=== PATIENT | female | born 1945 | race Hispanic/Latino ===

== ENCOUNTER 2016-11-13 12:32 | Observation (INO) | payer MEDICARE ==
[2016-11-13] VITALS (8 sets, daily range): BP systolic 148–191; BP diastolic 77–90; PULSE 48–63; RESP 16–22; O2SAT 98–100
[~2016-11-13] VITALS: Ht 167.6 cm; Wt 85.3 kg
[2016-11-13] MEDS ORDERED: Nitroglycerin 2% 1 Gm Ointment TOPICAL SCH (13:05)
--- NOTE | 2016-11-13 13:15 | ED.REPORT ---
HPI-Chest Pain 40 and Over Date of Service Nov 13, 2016 ED Provider: Antonio Conn DO Pt is a 71 year old female with a hx of HTN, hyperlipidemia and rheumatoid arthritis presenting to the ED complaining of 2/10 SOB and chest pressure onset yesterday. She has had worsening SOB since the smoke started. Symptoms are exacerbated by exertion, but were initially brought on at rest. Denies cough, fever, nausea or vomiting. The pain radiates up her left neck and to her left shoulder, and feels like a squeezing in her left upper arm. Denies hx of heart attack. She has not had a stress test but did have an echo in 2014. Pt took baby Aspirin with some relief prior to arrival. Nursing Notes Stated Complaint: CHEST PAIN Chief Complaint: General Complaint Nursing Notes Reviewed: Yes Allergies: Coded Allergies: lisinopril (Verified Allergy, Intermediate, coughing, 11/13/16) Uncoded Allergies: SULFA (Allergy, Unknown, 11/13/16) Scheduled Aspirin (Aspirin) 81 Mg Tablet 81 MG PO DAILY Atenolol (Tenormin) 25 Mg Tablet 25 MG PO DAILY B Complex with Vitamin C (Vitamin B-Complex with Vit C) 1 Each Tablet 1 EACH PO DAILY Calcium Carbonate/Vitamin D3 (Calcium 500 + Vit D 200 Tablet) 1 Each Tablet 1 EACH PO BID Cholecalciferol (Vitamin D3) (Vitamin D3) 50,000 Unit Capsule 50,000 UNIT PO WEEKLY Losartan Potassium (Cozaar) 25 Mg Tablet 25 MG PO DAILY Tofacitinib Citrate (Xeljanz Xr) 11 Mg Tab.er.24h 11 MG PO QPM Scheduled PRN Fluticasone Propionate (Flonase Allergy Relief) 50 Mcg/Actuation [place].susp 2 SPRAYS NA DAILY PRN PRN allergies General Time Seen by MD: 12:51 Chief Complaint Chest pain, Shortness of breath Hx Obtained From: Patient Arrived By: Walk-in Sudden in Onset?: No Onset Occurred: Yesterday Symptom Duration: Since onset Quality: Heaviness Radiation: : Arm left: Neck: Shoulder left Severity: Current: Mild Severity: Maximum: Mild Recent Healthcare: No recent doctor visit, No recent hospitalization Similar Sx Previous: Yes Past Medical History Past Medical History HTN, hyperlipidemia and rheumatoid arthritis, macrositic anemia Past Surgical History Right shoulder rotator cuff surgery Smoking History Never Smoker Social History Alcohol Use: Denies alcohol use Drug Use: Denies drug use Ambulatory Status Independent Review of Systems Constitutional: Denies: Fever Respiratory: Reports: Dyspnea on exertion, Shortness of breath, Denies: Non-productive cough Cardiovascular: Reports: Chest pain GI: Denies: Nausea, Vomiting Musculoskeletal: Reports: Extremity pain, Joint pain (left shoulder), Neck pain Complete sys rev & neg: except as marked. Physical Exam Initial Vital Signs Vital Signs (First) Date Time Temp Pulse Resp B/P Pulse Ox O2 Delivery O2 Flow Rate FiO2 11/13/16 12:38 36.9 48 18 177/83 100 Room Air Initial VS: Reviewed Head / Eyes: Atraumatic, Normocephalic, PERRL ENT: Mucous membranes moist, Conjunctiva normal, No scleral icterus Extremities: Vascular intact, Neuro intact, No swelling, No tenderness Skin: Warm, Dry, No cyanosis Neurologic: Alert, Oriented, Nonfocal Psychiatric: Mood/affect normal, Behavior normal, Normal thought content General/Constitutional: Awake, Alert, No acute distress, Well appearing Respiratory / Chest: Atraumatic, Breath sounds NL, Breath sounds = bilat, No respiratory distress Cardiovascular: Regular rhythm, Heart sounds NL Heart Rate / Rhythm: Positive: Bradycardia Abdomen: Atraumatic, Soft, Non-tender Interpretation & Diagnostics Lab Results Interpretation Result Diagram: 11/13/16 1310 11/13/16 1310 Test 11/13/16 13:10 White Blood Count 4.0th/mm3 (3.8-10.1) Red Blood Count 3.41mil/mm3 (3.90-5.20) Hemoglobin 11.2g/dL (12.0-15.6) Hematocrit 33.6% (35.0-46.0) Mean Corpuscular Volume 98.5fL (81-100) Mean Corpuscular Hemoglobin 32.8pg (27.0-35.0) Mean Corpuscular Hemoglobin Concent 33.3% (32.0-37.0) Red Cell Distribution Width 14.4% (12.3-15.4) Platelet Count 206bil/L (150-400) Neutrophils (%) (Auto) 19.4% (40-74) Lymphocytes (%) (Auto) 59.8% (14-46) Monocytes (%) (Auto) 16.4% (4-12) Eosinophils (%) (Auto) 3.7% (0-5) Basophils (%) (Auto) 0.5% (0-3) D-Dimer 1.09mg/L FEU (<0.50) Sodium Level 132mEq/L (134-144) Potassium Level 5.0mEq/L (3.5-5.2) Chloride Level 98mEq/L (97-108) Carbon Dioxide Level 22mmol/L (18-29) Blood Urea Nitrogen 23mg/dL (8-27) Creatinine 1.26mg/dL (0.57-1.00) Estimat Glomerular Filtration Rate 60mL/min (>59) Glucose Level 95mg/dL (60-99) Calcium Level 9.1mg/dL (8.5-10.1) Magnesium Level 2.2mg/dL (1.6-2.6) Total Bilirubin 0.5mg/dL (0.0-1.2) Aspartate Amino Transf (AST/SGOT) 36U/L (0-50) Alanine Aminotransferase (ALT/SGPT) 21U/L (0-32) Alkaline Phosphatase 119U/L (25-165) Troponin T < 0.010ug/L (0.0-0.011) Total Protein 7.8g/dL (6.4-8.4) Albumin 4.2g/dL (3.4-5.0) ECG Interpretation ECG Interpretation: Sinus bradycardia with a rate of 50. No ischemic changes. Time: 12:53 Interpreted by: ED physician X-Ray Chest Interpretation Chest Xray Interpretation: IMPRESSION: No acute pulmonary process. Dictated by: Jolie Gongora M.D. on 11/13/2016 at 13:20 View: Portable, 1 view Interpretation / Wet Read by: Interpret - Radiologist Re-Eval/Medical Decision Med Decision/Clinical Course Heart score of at least 4. D-dimer elevated. Chest CT pending. Will plan to admit for chest pain. Time of Eval: 14:10 Patient Status: Condition improved Re-Evaluation/Progress Note: Discussed plan for admission. Pt understands and agrees. All pt questions addressed. Consultation : Referral / Consult Name: TALYA FIELDS DO Consulted With: Hospitalist Call Returned at: 14:36 Slag Worker: Will see patient, Agrees with plan, Accepts admit Counseled Regarding: Diagnosis, Lab results, Need for admission Discharge & Departure Primary Impression: Chest pain Chest pain type: unspecified Qualified Code: R07.9 - Chest pain, unspecified Disposition: ADMITTED TO HOSPITAL Discharge Condition All VS Reviewed: Yes Condition: Improved Referrals: Rene Christian MD (PCP) Sami Attestation Portions of this note were transcribed by Samantha Padilla. I, Dr. Conn personally performed the history, physical exam and medical decision-making; I reviewed and confirmed the accuracy of the information in the transcribed note. Signed by: Sami Collazo, 11/13/2016. copies to: Rene Christian MD, Timothy S DO Nov 13, 2016 13:15 SAMANTHA PADILLA Nov 13, 2016 13:20
--- NOTE | 2016-11-13 13:22 | DRSVH ---
PROCEDURE: X-RAY CHEST ONE VIEW, PORTABLE ([id number]) INDICATIONS: CHEST PAIN TECHNIQUE: One view of the chest was acquired. COMPARISON: [facility], , CHEST 2VW, 08/26/2013, 9:15. FINDINGS: Surgical changes and devices: None. Lungs and pleura: No pleural effusions or pneumothorax. Lungs are clear. Mediastinum: Mediastinal contours appear normal. Heart size is normal. Bones and chest wall: No suspicious bony lesions. Overlying soft tissues appear unremarkable. IMPRESSION: No acute pulmonary process. Dictated by: Jolie Gongora M.D. on 11/13/2016 at 13:20 Approved by: Jolie Gongora M.D. on 11/13/2016 at 13:21
[2016-11-13 13:33] LABS: BASOPHILS % (AUTO) 0.5 % (0-3); EOSINOPHILS % (AUTO) 3.7 % (0-5); MONOCYTES % (AUTO) 16.4 % (4-12); Mean Corpuscular Hemoglobin 32.8 pg (27.0-35.0); Mean Corpuscular Volume 98.5 fL (81-100); NEUTROPHILS % (AUTO) 19.4 % (40-74); Platelet Count 206 bil/L (150-400)
[2016-11-13 13:59] LABS: TROPONIN T < 0.010 ug/L (0.0-0.011)
[2016-11-13 14:07] LABS: Magnesium 2.2 mg/dL (1.6-2.6)
[2016-11-13] MEDS ORDERED: Polyethylene Glycol (PEG) 17 Gm Powder PO PRN (14:50)
[2016-11-13] MEDS ORDERED: Atropine 1 mg/10 mL (Code) Syringe IVPUSH PRN (14:50)
[2016-11-13] MEDS ORDERED: Senna-Docusate 8.6-50 mg Tablet PO PRN (14:50)
[2016-11-13] MEDS ORDERED: Ondansetron 2 mg/mL 2 mL Inj IVPUSH PRN (14:50)
[2016-11-13] MEDS ORDERED: Alum-Mag Hydrox-Simeth 30 mL Suspension PO PRN (14:50)
[2016-11-13] MEDS ORDERED: CALC-72 PO (14:54)
[2016-11-13] MEDS ORDERED: TOFA11TA PO (14:54)
[2016-11-13] MEDS ORDERED: VITA1TAB22 PO (14:54)
[2016-11-13] MEDS ORDERED: LOSA25TA2 PO (14:54)
[2016-11-13] MEDS ORDERED: FLUT9.9S (14:54)
[2016-11-13] MEDS ORDERED: ATEN-154 PO (14:54)
[2016-11-13] MEDS ORDERED: ASPI-973 PO (14:54)
[2016-11-13] MEDS ORDERED: CHOL500050 PO (14:54)
[2016-11-13] MEDS: 0.9% Sodium Chloride 1,000 ML IV SCH (15:55)
[2016-11-13] MEDS: Sodium Chloride LOK Flush 10 mL Syringe IVFLUSH SCH (15:55)
--- NOTE | 2016-11-13 15:58 | DRSVH ---
PROCEDURE: CT ANGIO CHEST PULMONARY EMBOLISM ([id number]) INDICATIONS: dyspnea, chest pressure, elevated ddimer TECHNIQUE: After the administration of intravenous contrast, 2 mm thick sections acquired from the pulmonary api [place] to the posterior costophrenic angles. 3-dimensional maximum intensity projection (MIP) coronal a nd sagittal reformats were then acquired through the thorax. For radiation dose reduction, the follo wing was used: automated exposure control, adjustment of mA and/or kV according to patient size. COMPARISON: [facility], CT, CT CHEST WO CON, 03/24/2015, 8:19. [facility], CT, CHEST W/O CONTRAST, 03/22/2014, 11:25. [facility], CT, CHEST WITH CONTRAST, 4, 9:39. FINDINGS: Image quality: Excellent. Pulmonary arteries: Pulmonary arteries are normal in size, and demonstrate no intraluminal filling d efects to suggest central pulmonary embolism. Lungs and pleura: 5 mm right upper lobe nodule series 5 image 16 is present. It is unchanged. Focal a freddy of right lateral parenchymal pleural thickening is noted, unchanged, compared to 2013. No pleural effusions or pneumothorax. Central and peripheral airways are patent. Mediastinum: Heart size is normal, without pericardial effusion. No mediastinal or hilar adenopathy . Thoracic aorta is normal in caliber and enhancement. Esophagus is normal in caliber, without hiat al hernia. Bones and chest wall: No suspicious bony lesions. Ribs and thoracic spine appear intact throughout. Thyroid gland is unremarkable. No axillary or supraclavicular adenopathy. Abdomen: Visualized upper abdominal solid organs appear normal in the early arterial phase of enhanc ement. IMPRESSION: 1. No pulmonary embolism. 2. No effusions or consolidations. Dictated by: Jolie Gongora M.D. on 11/13/2016 at 15:46 Approved by: Jolie Gongora M.D. on 11/13/2016 at 15:57
--- NOTE | 2016-11-13 17:16 | NUR ---
Admit to [facility] Patient report called by Prerna Fabian RN in ED. Patient arrived to room 3010 via wheelchair and was able to transfer independently to scale and bed. Patient alert and oriented X3. Patient denied any pain at time of arrival. NS at 80mL/hour was started. Patient has several bruises noted on bilateral lower extremities. Patient blood pressure was hypertensive and MD notified. Patient oriented to staff, room, call light system, television, and visiting hours. Bed locked and call light with in reach.
[2016-11-13] MEDS ORDERED: XELJANZ XR 11 MG PO SCH (17:20)
--- NOTE | 2016-11-13 18:42 | NUR ---
Home Medication Patient has order for Xeljanz XR. Pharmacy does not carry medication. Patient was asked to have someone bring in home medication. Home medication was brought in and is being sent down to pharmacy for labeling.
--- NOTE | 2016-11-13 20:18 | PCM.HPMED ---
Subjective Date of Service Nov 13, 2016 Primary Provider: Admitting Physician: Primary Care Physician: Rene Christian MD Attending Physician: Admit Status: From the Emergency Department, Admit to [place] Team Chief Complaint: CHEST PAIN History of Present Illness: Ms. Coleen Pedersen is a vary pleasant 71 year old lady with a past medical history of hypertension, hyperlipidemia, and rheumatoid arthritis who presents to the [facility] Emergency Department with new onset chest pressure. She reports chest pain/pressure in her left chest, 5/10 pressure, with nothing aggravating or alleviating symptoms, "they just come and go." She she denies that it feels like GERD. She reports associated sharp 5/10 left shoulder pain and left arm pain that resembles "a tourniquet" and shortness of breath. She is endorsing radiation of pain into her neck and left arm. She did have mild dyspnea as well. Her symptoms were relieved with nitroglycerin. She states that this is has been ongoing for at least a month now. It is particularly worse last night. She denies syncope, vision change, headache, diaphoresis, dizziness, limb weakness, cough, fever, chills, nausea, vomiting, abdominal pain , diarrhea, dysuria. She has not had a stress test but did have an echo in 2014. Pt took baby Aspirin with some relief prior to arrival. She received 2 nitro in the ED with relief of symptoms. Social: Lives at home with . Good social support. No ambulatory aids. Full Code. In the ED her vitals:T-36.9, HR -49, RR-18, BP-177/83, 100% RA. EKG reviewed - SR, Bradycardia 50 bpm, normal axis, no ST changes. CT angio PE was done and was negative for pulmonary embolism In the ED she received: 2 SL nitro, ASA en route, Atorvastatin, NS fluids. Review of Systems: A comprehensive review of systems was conducted with the patient and found to be negative except as above in the History of Present Illness. Allergies Coded Allergies: lisinopril (Verified Allergy, Intermediate, coughing, 11/13/16) Uncoded Allergies: SULFA (Allergy, Unknown, 11/13/16) Home Medications Aspirin (Aspirin) 81 Mg Tablet 81 MG PO DAILY Atenolol (Tenormin) 25 Mg Tablet 25 MG PO DAILY B Complex with Vitamin C (Vitamin B-Complex with Vit C) 1 Each Tablet 1 EACH PO DAILY Calcium Carbonate/Vitamin D3 (Calcium 500 + Vit D 200 Tablet) 1 Each Tablet 1 EACH PO BID Cholecalciferol (Vitamin D3) (Vitamin D3) 50,000 Unit Capsule 50,000 UNIT PO WEEKLY Losartan Potassium (Cozaar) 25 Mg Tablet 25 MG PO DAILY Tofacitinib Citrate (Xeljanz Xr) 11 Mg Tab.er.24h 11 MG PO QPM Scheduled PRN Fluticasone Propionate (Flonase Allergy Relief) 50 Mcg/Actuation [place].susp 2 SPRAYS NA DAILY PRN PRN allergies PMH HTN Hyperlipidemia and Rheumatoid arthritis Macrositic anemia Surgical History Right shoulder rotator cuff surgery Family History Mother - cancer Father - heart disease Social History Hx Alcohol Use: Yes (socially) Hx Substance Use: No Smoking Status: Never Smoker Living Arrangement: with Family Additional Information 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 External ears without defect. Pupils equal, round, and reactive to light and accommodation. Anicteric sclerae, moist conjunctivae, and no lid lag. Oropharynx free of erythema and cobble stoning with moist mucosa. Neck: Supple with full range of motion. No jugular venous distension. No bruits. No lymphadenopathy or thyromegaly. Cardiovascular: Regular rate and rhythm with no murmurs, rubs, or gallops appreciated Pulmonary: Clear to auscultation bilaterally with no crackles, wheezes, or rhonchi. Normal respiratory effort with no use of accessory muscles. Abdomen: Bowel tones present. Soft, nontender, nondistended. No hepatosplenomegaly or masses appreciated. Extremities: No clubbing, cyanosis, edema, or lymphadenopathy appreciated. Skin: Normal temperature, turgor, and texture; no rash, ulcers, or subcutaneous nodules appreciated. Neurological: Cranial nerves grossly intact. Normal muscle strength, tone, and bulk. Reflexes, coordination, and sensory function within normal limits. No known gait impairment. Psychiatric: Normal mood and affect. Alert and oriented to person, place, and time. Lab and Diagnostics Result Diagram: 11/13/16 1310 11/13/16 1310 X-Rays, CTs and MRIs CT ANGIO CHEST PULMONARY EMBOLISM IMPRESSION: 1. No pulmonary embolism. 2. No effusions or consolidations. Approved by: Jolie Gongora M.D. on 11/13/2016 at 15:57 X-RAY CHEST ONE VIEW, PORTABLE IMPRESSION: No acute pulmonary process. Approved by: Jolie Gongora M.D. on 11/13/2016 at 13:21 Assessment & Plan Ms. Coleen Pedersen is a vary pleasant 71 year old lady with a past medical history of hypertension, hyperlipidemia, and rheumatoid arthritis who presents to the [facility] Emergency Department with new onset chest pressure. She is admitted under observation status, currently awaiting Stress test and Cardiac Echo. Chest pain, present on admission. Resolved. - EKG reviewed - SR, mildly bradycardic 50 bpm, normal axis, no st changes. - Continue home ASA. - Troponins x2 negative. - Echo ordered. Prior study in 2014. - CT angio - as above. - Exercise Stress test ordered for tomorrow. No caffeine. - IV Morphine prn. SL nitro prn chest pain. - Telemetry monitoring Acute on Chronic Hypertension, present on admission. Active. - She states she has taken her home medications in the a.m. -- Extra dose of losartan 25 mg by mouth was given in the ER, nitroglycerin patch is applied prior to arrival to the floor -- Give her an additional 12.5 mg of losartan at the time of admission -- Continue home Antihypertensives -Atenolol 25 mg daily, increase Losartan 25 mg twice a day. -- She is bradycardic and has not tolerated lisinopril. Hold off on giving her IV metoprolol or Enalapril -- May have to use hydrochlorothiazide or amlodipine by mouth for better control of blood pressures Chronic Conditions: Rheumatoid Arthritis stable - Continue home Tofacitinib 11 Mg PM. Acetaminophen for mild pain when necessary. Bowel regimen Senna and MiraLAX scheduled and PRN. Zofran when necessary for nausea and vomiting. SubQ heparin for now. SCDs in place. High-risk medications: IV Morphine Patient Status: Patient is admitted under observation status with expected length of stay less than 2 midnights due to severity of presenting symptoms, risk of adverse event, and complexity of treatment plan. Pain Evaluation: Adequate Pain Control Resuscitation Status: CPR: Attempt Resuscitation Time spent 45 minutes Attending Statement The patient was seen and examined together with Dr. Patel on 11/13/16 and I agree with the history, exam and plan as outlined in the note above. . TALYA PATEL DO Nov 13, 2016 14:56 Anamika Venegas DO Nov 13, 2016 22:28
[2016-11-14 00:11] VITALS: BP 169/76; PULSE 51; RESP 18; O2SAT 97
[2016-11-14] MEDS: Sodium Chloride LOK Flush 10 mL Syringe IVFLUSH SCH ×3 (00:30→16:00)
[2016-11-14] MEDS: Heparin 5,000 Unit/mL Inj SUBQ SCH ×3 (01:00→16:14)
[2016-11-14 01:11] LABS: Creatine Kinase 90 U/L (21-215)
[2016-11-14] MEDS: 0.9% Sodium Chloride 1,000 ML IV SCH ×2 (03:55→15:48)
[2016-11-14 05:18] VITALS: BP 174/80; PULSE 53; RESP 18; O2SAT 98
--- NOTE | 2016-11-14 05:29 | NUR ---
Shift note uneventful night ,no pain,tele reports ric at 49 now, NPO since mn
[2016-11-14] MEDS ORDERED: Fluticasone 0.05% 15 Spray/2 Gm 16 Gm Nasal Spray NASAL PRN (08:30)
[2016-11-14 10:47] VITALS: PULSE 49
--- NOTE | 2016-11-14 10:49 | PCM.PNMED ---
Subjective Date of Service Nov 14, 2016 Subjective Pt denies CP this AM. Blood pressure elevated this AM, Atenolol held for stress test today. Exam Vital Signs Vital Sign - Last Date Time Temp Pulse Resp B/P Pulse Ox O2 Delivery O2 Flow Rate FiO2 11/14/16 05:18 36.5 53 18 174/80 98 Room Air Intake and Output 11/13/16 11/13/16 11/14/16 Cumulative From/Thru 15:00 23:00 07:00 11/13/16 12:38 - 11/14/16 06:32 Intake Total 100 ml 1589 ml 1689 ml Output Total 175 ml 2325 ml 2500 ml Balance -75 ml -736 ml -811 ml Intake Oral 100 ml 440 ml 540 ml IV Total 1149 ml 1149 ml Output Urine Total 175 ml 2325 ml 2500 ml # Bowel Movements 0 0 Exam General: Elderly lady lying in bed in no acute distress, well-developed, well- nourished, appropriately interactive HEENT: Normocephalic, atraumatic. External ears without defect. Pupils equal, round, and reactive to light and accommodation. Anicteric sclerae, moist conjunctivae, and no lid lag. Oropharynx free of erythema and cobble stoning with moist mucosa. Neck: Supple with full range of motion. No jugular venous distension. No bruits. No lymphadenopathy or thyromegaly. Cardiovascular: Regular rate and rhythm with no murmurs, rubs, or gallops appreciated Pulmonary: Clear to auscultation bilaterally with no crackles, wheezes, or rhonchi. Normal respiratory effort with no use of accessory muscles. Abdomen: Bowel tones present. Soft, nontender, nondistended. No hepatosplenomegaly or masses appreciated. Extremities: No clubbing, cyanosis, edema, or lymphadenopathy appreciated. Skin: Normal temperature, turgor, and texture; no rash, ulcers, or subcutaneous nodules appreciated. Neurological: Cranial nerves grossly intact. Normal muscle strength, tone, and bulk. Reflexes, coordination, and sensory function within normal limits. No known gait impairment. Psychiatric: Normal mood and affect. Alert and oriented to person, place, and time. IVs and Medications Medications Reviewed: Medications were reviewed in detail Lab and Diagnostics Result Diagram: 11/13/16 1310 11/14/16 0055 X-Rays, CTs and MRIs CT ANGIO CHEST PULMONARY EMBOLISM IMPRESSION: 1. No pulmonary embolism. 2. No effusions or consolidations. Approved by: Jolie Gongora M.D. on 11/13/2016 at 15:57 X-RAY CHEST ONE VIEW, PORTABLE IMPRESSION: No acute pulmonary process. Approved by: Jolie Gongora M.D. on 11/13/2016 at 13:21 Assessment & Plan Ms. Coleen Pedersen is a vary pleasant 71 year old lady with a past medical history of hypertension, hyperlipidemia, and rheumatoid arthritis who presents to the [facility] Emergency Department with new onset chest pressure. Chest pain, present on admission. Resolved. - EKG reviewed - SR, mildly bradycardic 50 bpm, normal axis, no st changes. - Continue home ASA. - Troponins x2 negative. - Echo ordered. Prior study in 2014. -11/14- CT angio - No PE. - IV Morphine prn. SL nitro prn chest pain. - Telemetry monitoring - Exercise Stress test Acute on Chronic Hypertension, present on admission. Active. - She states she has taken her home medications in the a.m. -- Extra dose of losartan 25 mg by mouth was given in the ER, nitroglycerin patch is applied prior to arrival to the floor -- Give her an additional 12.5 mg of losartan at the time of admission -- bradycardic and has not tolerated lisinopril in past. Hold off on giving her IV metoprolol or Enalapril - Continued home Antihypertensives -Atenolol 25 mg daily, increase Losartan 25 mg twice a day. Held AM BB for stress. -- Other options hydrochlorothiazide or amlodipine by mouth for better control of blood pressures Chronic Conditions: Rheumatoid Arthritis stable - Continue home Tofacitinib 11 Mg PM. Acetaminophen for mild pain when necessary. Bowel regimen Senna and MiraLAX scheduled and PRN. Zofran when necessary for nausea and vomiting. SubQ heparin for now. SCDs in place. High-risk medications: IV Morphine Patient Status: Patient is admitted under observation status with expected length of stay less than 2 midnights due to severity of presenting symptoms, risk of adverse event, and complexity of treatment plan. Pain Evaluation: Adequate Pain Control VTE Prophylaxis: Sub-Q Heparin (Unfractionated) VTE Mechanical Devices: Venous Foot Pump Resuscitation Status: CPR: Attempt Resuscitation Gerhard Kim MD Nov 14, 2016 10:49
--- NOTE | 2016-11-14 11:31 | NUR ---
Social Work-initial assessment/ readiness for discharge: Data:See initial assessment. Pt is a 71 y/o female who was admitted on 11/13/16 for chest pain per H&P. Pt's insurance is [employer] and PCP is Rene Christian MD. EMR reviewed. SW met with pt and at bedside, SW role explained. Pt is alert and oriented x3. Pt resides at home with her in [facility] with one step to enter the house. Pt does not use any DME and drives. Pt has no HH or SNF history. Pt has no rodent exterminator care insurance or VA benefits. SW discussed DPOA/ advanced directive, pt has not completed this, SW provided pt with paperwork. Pt discussed in morning rounds, MD and RN do not report any concerns around pt's capacity for self care. Pt has been up independent in her room. Pt to have stress test today. SW provided pt and with discharge planning checklist and encouraged them to call with any questions, phone number provided. Pt's to provide transport home. No anticipated discharge needs. SW will continue to follow if needs arise. Assessment:pt who is independent at baseline. Plan:Pt to discharge home when medically stable via POV.No anticipated discharge needs. SW will continue to follow if needs arise. TRISTON Colby Addendum: 11/14/16 at 1143 by ARIANA CONNER Amended: Links added.
--- NOTE | 2016-11-14 11:45 | DRSVH ---
PROCEDURE: 1 DAY TREADMILL STRESS TEST Rest and exercise myocardial perfusion SPECT with gated imaging and ejection fraction RADIOPHARMACEUTICAL: 8.6 mCi Tc-99m tetrafosmin IV at rest and 25.4 mCi Tc-99m tetrafosmin IV at peak exercise. [id number] was performed. INDICATIONS: 71 year-old woman with chest pain. The patient has hypertension and history of smoking as risk factors for coronary artery disease. TECHNIQUE: Radiopharmaceutical was injected at peak stress test, and also at rest. SPECT images wer e obtained. SPECT myocardial perfusion images were displayed in short axis, horizontal long axis, an d vertical long axis views. Gated images were reviewed using LatindaQUANT software. COMPARISON: None. CARDIAC STRESS: A standard Oscar treadmill exercise tolerance test was performed by the patient under the supervision of an attending staff. The patient exercised for 2 minutes and 13 seconds; functional aerobic impai rment (CECI) is +25 %. Hemodynamic data: There is normal blood pressure and heart rate response to exercise stress. Patien t achieved 92% of maximum predicted heart rate at peak exercise. Symptoms: Patient denied chest pain during exercise. EKG: No diagnostic EKG changes of ischemia; no ectopy. FINDINGS: Raw data: There is good myocardial labeling by radiotracer. No significant motion artifacts. Left ventricle function: Gated images demonstrate normal left ventricle wall thickening. No segment al wall motion abnormality. No transient ischemic dilation. The left ventricle resting end-diastoli c volume is normal. Left ventricle stress ejection fraction is greater than 70%; normal values are a tracey 45%. Myocardial perfusion: There is normal distribution of activity in the left and right ventricular iftikhar cardium. No fixed or reversible perfusion defects. IMPRESSION: 1. Normal myocardial perfusion images. 2. Normal left ventricular volume and systolic function. 3. Mild to moderately reduced exercise capacity. No chest pain or diagnostic EKG changes for ischemia . PQRS ATTESTATIONS: Measure 322 - Is this imaging test primarily performed on a low-risk surgery patient for preoperative evaluation within 30 days preceding their low-risk non-cardiac surgery? Low-risk surgery is defined as cardiac or myocardial infarction less than 1%, including (but not limited to) endoscopic pr ocedures, superficial procedures, cataract surgery, and excisional breast surgery: Answer: No Measure 323 - Is this imaging test performed primarily for the monitoring of an asymptomatic patient who had percutaneous coronary intervention on the visit date or within 2 years of the visit date? An swer: No Measure 324 - Is this imaging test performed primarily for the initial detection and risk assessment on an asymptomatic, low coronary heart disease patient? Low CHD risk definition = clinicians should consider the maximum number of available patient factors used to estimate risk based on Leona (A TP III criteria), typically age, gender, diabetes, smoking status, and use of blood pressure medicati on, and integrate age appropriate estimates for missing elements, such as LDL or standard blood press ure. Answer: No Dictated by: Maura Smiley M.D. on 11/14/2016 at 11:39 Approved by: Maura Smiley M.D. on 11/14/2016 at 11:44
--- NOTE | 2016-11-14 12:50 | NUR ---
Case Management: SUNG delivered and charted. Signed original placed in chart. Copy left at bedside. Ashtyn Membreno RN
[2016-11-14 13:06] VITALS: BP 152/77; PULSE 63; RESP 18; O2SAT 99
--- NOTE | 2016-11-14 14:05 | PCM.DIMED ---
Discharge Instructions Date of Service Nov 14, 2016 Dates of Hospitalization Nov 13, 2016 at 15:00 Discharge Diagnosis Discharge Diagnosis Chest pain, present on admission. Resolved. Acute on Chronic Hypertension, present on admission. Resolved. Rheumatoid Arthritis, chronic, stable Medication Instructions Additional med instructions Continue Aspirin 81mg daily. Test Results Test Results 11/14- Treadmill Stress Test- 1. Normal myocardial perfusion images. 2. Normal left ventricular volume and systolic function. 3. Mild to moderately reduced exercise capacity. No chest pain or diagnostic EKG changes for ischemia Diet Discharge Diet: Low fat, Low Sodium Activity Discharge Activity: No restrictions Call your provider Call your provider for: Chest pain Patient Instructions Patient Instructions Cardiac stress test is negative for cardiac cause of chest pain. Your labs are consistent with Pre-Diabetes and your lipid/cholesterol labs are also elevated. Recommend diet and exercise control and rechecking labs in 3 months. Follow-up plan Follow up with you primary doctor in 2 weeks. Follow-up Provider: Rene Christian MD Follow-up with PCP in: 2 weeks Gerhard Kim MD Nov 14, 2016 14:05
[2016-11-14 16:51] VITALS: BP 135/82; PULSE 60; RESP 18; O2SAT 97
--- NOTE | 2016-11-14 17:53 | NUR ---
Discharge Patient given discharge orders. Patient given medication list with written times when next dose due. Patient given and explained follow up instructions. Patient IV removed fully intact and asymptomatic. Patient assisted to main entrance by wheelchair and staff.
--- NOTE | 2016-11-15 15:08 | DRSVH ---
[facility] [address] [place] [address] Echocardiogram Report Name: ORIANA BURT MStudy Date: 11/14/2016 Height: 66 in Hospital Exam Location: [facility] Weight: 189 lb Gender: Female BSA: 2.0 m2 : 1945 Age: 71 yrs BP: 174/80 mmHg Reason For Study: CHEST PAIN Ordering Physician: Reuben ShawPerformed By: Cinthia Dan Referring Physician: TALYA FIELDS Interpretation Summary 1. Normal left ventricular size, wall thickness and systolic function with an estimated EF of 60-65% 2. Upper limits of normal right ventricular size with normal systolic function. The estimated RVSP is 30 mm Hg 3. No evidence for significant valvular pathology Compared to the previous study, no appreciable change Procedure: A two-dimensional transthoracic echocardiogram with color flow and Doppler was performed. The study quality was technically adequate. A contrast injection of Definity was performed to improve assessment of LV function. Comparison is made with the echocardiogram of 06/03/14. The patient was in sinus bradycardia with heart rates between 56 and 63 bpm during the exam. Left Ventricle: The left ventricle is normal in size. There is normal left ventricular wall thickness. Mildly elevated outflow tract velocities. The left ventricular ejection fraction is normal. The ejection fraction is estimated to be 60-65%. No obvious focal wall motion abnormalities. Assessment of diastolic parameters indicates normal left ventricular diastolic function and normal filling pressures. Right Ventricle: The right ventricle is borderline dilated. The right ventricular systolic function is normal. Atria: The left atrium is moderately dilated. Right atrial size is normal. No color doppler evidence for an ASD. Mitral Valve: The mitral valve is normal. There is mild mitral annular calcification. There is trace mitral regurgitation. Aortic Valve: The aortic valve is trileaflet. The aortic valve is slightly calcified. The aortic valve opens well. No aortic regurgitation is present. Tricuspid Valve: The tricuspid valve is normal. There is mild tricuspid regurgitation. The right ventricular systolic pressure is estimated at least 30 mmHg assuming a right atrial pressure of 8 mm Hg. Pulmonic Valve: The pulmonic valve leaflets are thin and pliable; valve motion is normal. There is mild pulmonic regurgitation. Great Vessels: The aortic root is normal size. The ascending aorta is mildly enlarged. The aortic arch is normal in size. The diameter of the ascending aorta is 3.8 cm. The IVC is of normal diameter and collapses greater than 50% with a sniff. This suggests a low right atrial pressure of 3 mm Hg. Pericardium/ Pleura There is no pericardial effusion. There is no pleural effusion. MMode/2D Measurements & Calculations LVIDd: 5.1 cm RA long axis LVOT diam: 2.2 cm LVIDs: 2.8 cm LA A2 area: 26.9 cm AoV Opening FS: 44.6 % LA A4 area: 23.2 cm RA area EPSS: 0.96 cm LA length (vol) Ao root diam IVSd: 1.0 cm : 16.3 cm LVPWd: 0.82 cm LA vol: 90.4 ml RA vol asc Aorta Diam LA vol index : 43.3 ml RA Ao Arch Diam (Prox : 22.2 mm2 Trans): 2.9 cm IVC diam: 2.3 cm LV julio. diameter/BSA LV sys. diameter/BSA RVD1 (basal) (cm/m^2): 2.6 (cm/m^2): 1.4 Doppler Measurements & Calculations Ao V2 max MV E max bay MV E/A: 1.5 TR max bay : 149.9 cm/sec : 90.1 cm/sec Med [place] : 261.7 cm/sec Ao max P.0 mmHg MV A max bay TR max PG Ao mean P.2 mmHg : 60.5 cm/sec E/E' med: 11.4 : 27.4 mmHg LVOT Max [place] Lat [place] PA V2 max : 138.0 cm/sec : 80.2 cm/sec E/E' lat: 9.6 PA mean PG MATEO(I,D): 3.4 cm E/e' average sev ratio: 0.86 PA Accel Time : 0.08 sec MV dec time: 0.25 sec Ao V2 mean LV V1 max PG PA V2 mean : 105.9 cm/sec : 53.4 cm/sec Ao V2 VTI: 34.4 cmLV V1 VTI: 29.5 cm MATEO(V,D): 3.6 cm2 MATEO indexed to BSA (cm^2/m^2): 1.7 Reading Physician:03:07 PM
--- NOTE | 2016-11-15 16:16 | PCM.DC.MED ---
Discharge Summary Date of Service Nov 15, 2016 Dates of Hospitalization Date of Hospital Admission Nov 13, 2016 at 15:00 Date of Discharge: Nov 15, 2016 Providers: Admitting Physician: Anamika Venegas DO Primary Care Physician: Rene Christian MD Attending Physician: Anamika Venegas DO Diagnosis at Time of Discharge Diagnosis at Time of Discharge Chest pain, present on admission. Resolved. Acute on Chronic Hypertension, present on admission. Resolved. Rheumatoid Arthritis, chronic, stable Procedures XRay, CTs & MRIs CT ANGIO CHEST PULMONARY EMBOLISM IMPRESSION: 1. No pulmonary embolism. 2. No effusions or consolidations. Approved by: Jolie Gongora M.D. on 11/13/2016 at 15:57 X-RAY CHEST ONE VIEW, PORTABLE IMPRESSION: No acute pulmonary process. Approved by: Jolie Gongora M.D. on 11/13/2016 at 13:21 Cardiac Echo Impression 1. Normal left ventricular size, wall thickness and systolic function with an estimated EF of 60-65% 2. Upper limits of normal right ventricular size with normal systolic function. The estimated RVSP is 30 mm Hg 3. No evidence for significant valvular pathology Brief History Per H&P by Dr. Patel on 11/13/16 Ms. Coleen Pedersen is a vary pleasant 71 year old lady with a past medical history of hypertension, hyperlipidemia, and rheumatoid arthritis who presents to the [facility] Emergency Department with new onset chest pressure. She reports chest pain/pressure in her left chest, 5/10 pressure, with nothing aggravating or alleviating symptoms, "they just come and go." She she denies that it feels like GERD. She reports associated sharp 5/10 left shoulder pain and left arm pain that resembles "a tourniquet" and shortness of breath. She is endorsing radiation of pain into her neck and left arm. She did have mild dyspnea as well. Her symptoms were relieved with nitroglycerin. She states that this is has been ongoing for at least a month now. It is particularly worse last night. She denies syncope, vision change, headache, diaphoresis, dizziness, limb weakness, cough, fever, chills, nausea, vomiting, abdominal pain , diarrhea, dysuria. She has not had a stress test but did have an echo in 2014. Pt took baby Aspirin with some relief prior to arrival. She received 2 nitro in the ED with relief of symptoms. Social: Lives at home with . Good social support. No ambulatory aids. Full Code. In the ED her vitals:T-36.9, HR -49, RR-18, BP-177/83, 100% RA. EKG reviewed - SR, Bradycardia 50 bpm, normal axis, no ST changes. CT angio PE was done and was negative for pulmonary embolism In the ED she received: 2 SL nitro, ASA en route, Atorvastatin, NS fluids. Hospital Course Ms. Coleen Pedersen is a vary pleasant 71 year old lady with a past medical history of hypertension, hyperlipidemia, and rheumatoid arthritis who presents to the [facility] Emergency Department with new onset chest pressure. Exercise Stress test negative for ischemia. Chest pain, present on admission. Resolved. - EKG reviewed - SR, mildly bradycardic 50 bpm, normal axis, no st changes. - Continue home ASA. - Troponins x2 negative. - Echo- EF 60-65%, see attached report. -11/14- CT angio - No PE. - Telemetry monitoring, no arrythmia noted. - Exercise Stress test negative for ischemia. Acute on Chronic Hypertension, present on admission. Active. - She states she has taken her home medications in the a.m. -- Extra dose of losartan 25 mg by mouth was given in the ER, nitroglycerin patch is applied prior to arrival to the floor -- Given additional 12.5 mg of losartan at the time of admission - Continued home Antihypertensives -Atenolol 25 mg daily, increase Losartan 25 mg twice a day. Chronic Conditions: Rheumatoid Arthritis stable - Continue home Tofacitinib 11 Mg PM. Acetaminophen for mild pain when necessary. Bowel regimen Senna and MiraLAX scheduled and PRN. Zofran when necessary for nausea and vomiting. SubQ heparin SCDs. Exam Vital Signs (Last) Date Time Temp Pulse Resp B/P Pulse Ox O2 Delivery O2 Flow Rate FiO2 11/14/16 16:51 36.4 60 18 135/82 97 Room Air Test 11/13/16 13:10 11/13/16 16:17 11/13/16 17:27 11/14/16 00:10 White Blood Count 4.0th/mm3 (3.8-10.1) Red Blood Count 3.41mil/mm3 (3.90-5.20) Hemoglobin 11.2g/dL (12.0-15.6) Hematocrit 33.6% (35.0-46.0) Mean Corpuscular Volume 98.5fL (81-100) Mean Corpuscular Hemoglobin 32.8pg (27.0-35.0) Mean Corpuscular Hemoglobin Concent 33.3% (32.0-37.0) Red Cell Distribution Width 14.4% (12.3-15.4) Platelet Count 206bil/L (150-400) Neutrophils (%) (Auto) 19.4% (40-74) Lymphocytes (%) (Auto) 59.8% (14-46) Monocytes (%) (Auto) 16.4% (4-12) Eosinophils (%) (Auto) 3.7% (0-5) Basophils (%) (Auto) 0.5% (0-3) D-Dimer 1.09mg/L FEU (<0.50) Potassium Level 5.0mEq/L (3.5-5.2) Chloride Level 98mEq/L (97-108) Carbon Dioxide Level 22mmol/L (18-29) Blood Urea Nitrogen 23mg/dL (8-27) Creatinine 1.26mg/dL (0.57-1.00) Estimat Glomerular Filtration Rate 60mL/min (>59) Glucose Level 95mg/dL (60-99) Calcium Level 9.1mg/dL (8.5-10.1) Magnesium Level 2.2mg/dL (1.6-2.6) Total Bilirubin 0.5mg/dL (0.0-1.2) Aspartate Amino Transf (AST/SGOT) 36U/L (0-50) Alanine Aminotransferase (ALT/SGPT) 21U/L (0-32) Alkaline Phosphatase 119U/L (25-165) Total Protein 7.8g/dL (6.4-8.4) Albumin 4.2g/dL (3.4-5.0) Hold Purple Top Tube Received (Received) Hold [place] Top Tube Received (Received) Hemoglobin A1c 6.3% (4.8-5.6) Triglycerides Level 104mg/dL (0-149) Cholesterol Level 287mg/dL (100-199) LDL Cholesterol, Calculated 175.200mg/dL (0-99) VLDL Cholesterol 20.800mg/dL HDL Cholesterol 91mg/dL (>39) Cholesterol/HDL Ratio 3.15 (0.0-4.4) Total Creatine Kinase 90U/L (21-215) Creatine Kinase MB 1.7ng/mL (0.0-5.3) Creatine Kinase MB % % (0.0-5.0) Troponin T 0.010ug/L (0.0-0.011) Test 11/14/16 00:55 Sodium Level 134mEq/L (134-144) Discharge Medications Discharge Medications Aspirin (Aspirin) 81 Mg Tablet 81 MG PO DAILY (Reported) Atenolol (Tenormin) 25 Mg Tablet 25 MG PO DAILY (Reported) B Complex with Vitamin C (Vitamin B-Complex with Vit C) 1 Each Tablet 1 EACH PO DAILY (Reported) Calcium Carbonate/Vitamin D3 (Calcium 500 + Vit D 200 Tablet) 1 Each Tablet 1 EACH PO BID (Reported) Cholecalciferol (Vitamin D3) (Vitamin D3) 50,000 Unit Capsule 50,000 UNIT PO WEEKLY (Reported) Losartan Potassium (Cozaar) 25 Mg Tablet 25 MG PO DAILY (Reported) Tofacitinib Citrate (Xeljanz Xr) 11 Mg Tab.er.24h 11 MG PO QPM (Reported) As needed Fluticasone Propionate (Flonase Allergy Relief) 50 Mcg/Actuation [place].susp 2 SPRAYS NA DAILY PRN PRN allergies (Reported) Additional med instructions Continue Aspirin 81mg daily. Followup Plan Disposition: Home Follow-up plan Follow up with you primary doctor in 2 weeks. Discharge Diet: Low fat, Low Sodium Discharge Activity: No restrictions Patient Instructions Cardiac stress test is negative for cardiac cause of chest pain. Your labs are consistent with Pre-Diabetes and your lipid/cholesterol labs are also elevated. Recommend diet and exercise control and rechecking labs in 3 months. Follow-up Provider: Rene Christian MD Follow-up with PCP in: 2 weeks Gerhard Kim MD Nov 15, 2016 16:16
== END 2016-11-14 18:00 | disposition home or self-care (01) ==
LOC: SED 12:32 → MPC 15:00
PROVIDERS: ADMIT Family Medicine; ATTEND Family Medicine
DX: R07.9 Chest pain, unspecified (principal); I10 Essential (primary) hypertension; E78.5 Hyperlipidemia, unspecified; M06.9 Rheumatoid arthritis, unspecified; Z79.82 Long term (current) use of aspirin; D53.9 Nutritional anemia, unspecified
CPT/HCPCS: 36415; 71010; 71275; 78452; 80053; 80061; 82550; 82553; 83036; 83735; 84295; 84484; 85025; 85378; 93005; 93017; 99285; A9502; C8929; G0378; J1644; J7030; Q9957; Q9967